=== PATIENT | male | born 2000 | race Caucasian/White ===

== ENCOUNTER 2022-03-29 20:56 | Emergency (ER) | payer OTHER, SELFPAY ==
[2022-03-29 21:17] VITALS: BP 124/70; BP 127/76; PULSE 115; PULSE 94; RESP 18; TEMP 38.2; O2SAT 99; BMI 25.1
--- NOTE | 2022-03-29 22:06 | CRLHL7_ITS ---
For Patients: As a result of the Cures Act, medical imaging exams and procedure reports are released immediately into your electronic medical record. You may view this report before your referring provider. If you have questions, please contact your health care provider. INDICATION: Cough. TECHNIQUE: Chest radiograph 2 views COMPARISON: None FINDINGS: Cardiovascular and mediastinum: The heart silhouette is normal in size and morphology. The mediastinum is normal in appearance. Lungs and pleural spaces: Both lungs are unremarkable in appearance. No sign of pleural effusion seen. No pneumothorax is identified. Bones and soft tissues: No significant findings. IMPRESSION: 1. No acute cardiopulmonary disease is seen. Dictated by Jean Mauro MD @ 03/29/2022 10:38:36 PM Dictated by: Jean Mauro MD @ 03/29/2022 22:38:43 (Electronically Signed)
--- NOTE | 2022-03-29 22:16 | ED.GENADULT ---
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 He tested negative for COVID 19 at home today. Pt has not vomited and has no diarrhea. No significant cough or disuria. No rashes or stiff neck. No sick contacts. Took tylenol at home with no effect. Related Data Home Medications Medication Instructions Recorded Confirmed No Known Home Medications 03/29/22 03/29/22 Allergies Allergy/AdvReac Type Severity Reaction Status Date / Time No Known Drug Allergies Allergy Verified 03/29/22 21:20 Review of Systems Status of ROS: Reports: 10 or more systems reviewed and unremarkable except as noted in History and below [facility] Medical History No significant past medical history Surgical History No significant past surgical history Social History Smoking Status: Never smoker Do you use any of these nicotine containing products: None How often do you have a drink containing alcohol: never How often do you have six or more drinks on one occasion: Never AUDIT-C Alcohol total score: 0 Non-prescribed substance use: marijuana (any form) Exam Narrative: Exam Narrative: EXAM GENERAL: Patient appears comfortable and well. EYES: No scleral icterus. ENT: Tympanic membranes and oropharynx normal. THYROID: no thyroid nodules or thyromegaly. LYMPH: No supraclavicular or cervical lymphadenopathy. SKIN: Visible skin seen during exam normal or with benign process only. EXT: No dependent lower extremity pedal edema. HEART: Regular rate and rhythm with no murmurs, rubs, or gallops. LUNGS: Clear to auscultation bilaterally with no crackles or wheezes. ABD: Soft, non tender, non distended. PSYCH: Good eye contact, speech is not pressured. Const: Vital Signs, click to edit/add: Vital Signs - 24 hr 03/29/22 21:17 03/29/22 21:17 Temperature 100.8 F H 100.8 F H Pulse Rate [Right Pulse Oximeter] 115 H 94 Respiratory Rate 18 18 Blood Pressure [Le ft Arm] 124/70 Blood Pressure [Ri ght Upper Arm] 127/76 Pulse Oximetry 99 99 Oxygen Delivery Me thod Room Air Room Air Course Course Hospital Course: Pt appears to have a mild viral illness. Will collect RSV, Influenza, COVID testing. Chest x ray and CBC Reevaluation(s) Reevaluation #1: CBC shows mild elevation but monocytes are not increased. Pt has no urinary symptoms. Chest Xray normal. No localizing symptoms Time: 22:56 Vital Signs Vital signs: Initial Vital Signs Temperature 100.8 F H 03/29/22 21:17 Temperature Source Temporal Artery Scan 03/29/22 21:17 Pulse Rate 115 H 03/29/22 21:17 Respiratory Rate 18 03/29/22 21:17 Respiratory Effort Spontaneous 03/29/22 21:17 Respiratory Depth Normal 03/29/22 21:17 Respiratory Pattern 03/29/22 21:17 Blood Pressure 124/70 03/29/22 21:17 Blood Pressure Mean 88 03/29/22 21:17 Blood Pressure Position Supine 03/29/22 21:17 Pulse Oximetry 99 03/29/22 21:17 Oxygen Delivery Method 03/29/22 21:17 Sepsis Recent Fever Within 48 Hours No 03/29/22 21:17 Sepsis New/Unexplained Change in Mental Status No 03/29/22 21:17 Sepsis Action Taken by Nursing No Action Required 03/29/22 21:17 Vital Signs Temperature 100.8 F H 03/29/22 21:17 Pulse Rate 115 H 03/29/22 21:17 Respiratory Rate 18 03/29/22 21:17 Blood Pressure 124/70 03/29/22 21:17 Pulse Oximetry 99 03/29/22 21:17 Oxygen Delivery Method 03/29/22 21:17 Temperature 100.8 F H 03/29/22 21:17 Pulse Rate 115 H 03/29/22 21:17 Respiratory Rate 18 03/29/22 21:17 Blood Pressure 124/70 03/29/22 21:17 Pulse Oximetry 99 03/29/22 21:17 Oxygen Delivery Method 03/29/22 21:17 Medical Decision Making MDM Narrative Medical decision making narrative: Pt presents with a constilation of symptoms most compadible with viral syndrome. Tested negative today for covid. Chest x ray normal. Unremarkable exam. Triple viral swab collected. Differential Diagnosis Differential Diagnosis: Viral syndrome, URI, Pneumonia, COVID19, Influenza Lab Data Labs: Lab Results 03/29/22 Range/Units 22:20 WBC 13.84 H (4.50-11.00) K/uL RBC 4.76 (4.30-5.90) m/uL Hgb 14.2 (13.5-17.5) gm/dL Hct 40.9 (37.0-53.0) % MCV 86 (80-100) fL MCH 30 (26-34) pg MCHC 35 (32-36) gm/dL RDW Coeff of Kaley 12.7 (11.5-15.5) % Plt Count 155 (140-440) K/uL Neut % (Auto) 89.3 H (42.0-72.0) % Lymph % (Auto) 3.9 L (20-44) % Smith % (Auto) 5.8 (0.0-11.0) % Eos % (Auto) 0.1 (0.0-7.0) % Baso % (Auto) 0.2 (0.0-3.0) % Neut # (Auto) 12.40 H (1.7-7.0) K/uL Lymph # (Auto) 0.50 L (0.90-2.90) K/uL Smith # (Auto) 0.80 (0.00-0.90) K/UL Eos # (Auto) 0.00 (0.00-0.50) K/uL Baso # (Auto) 0.00 (0.00-0.30) K/uL Abs Immat Gran (auto) 0.10 (0.00-0.30) K/uL Discharge Plan Discharge Clinical Impression: Fever Condition: Stable Instructions: Fever in Adults (ED) Additional Instructions: Tylenol Motrin Rest Fluids Measure tempurature Watch for any worsening symptoms Return if symptoms worsen or new symptoms develop Activity Level: No Restrictions Discharge Diet: Regular Prescriptions: No Action No Known Home Medications Stand Alone Forms: MyHealth Info Instructions
[2022-03-29 22:28] LABS: Basophils Percent Auto 0.2 % (0.0-3.0); Eosinophils Percent Auto 0.1 % (0.0-7.0); Hematocrit 40.9 % (37.0-53.0); Hemoglobin* 14.2 gm/dL (13.5-17.5); Lymphocytes Percent Auto 3.9 % (20-44); Mean Corpuscular HGB Conc 35 gm/dL (32-36); Mean Corpuscular Hemoglobin 30 pg (26-34); Mean Corpuscular Volume 86 fL (80-100); Monocytes Percent Auto 5.8 % (0.0-11.0); Neutrophils Percent Auto 89.3 % (42.0-72.0); Platelet Count* 155 K/uL (140-440); RDW Coefficient of Variation % 12.7 % (11.5-15.5); Red Blood Count 4.76 m/uL (4.30-5.90); White Blood Count* 13.84 K/uL (4.50-11.00)
[2022-03-29 22:31] LABS: Slide Review Reflex No
[2022-03-29 23:09] LABS: PCR FLU A Negative PCR FLU A (Negative); PCR FLU B Negative PCR FLU B (Negative); PCR RSV Negative PCR RSV (Negative)
[2022-03-29 23:10] VITALS: BP 120/70; PULSE 108; RESP 18; TEMP 37.8; O2SAT 99
[2022-03-29 23:21] VITALS: BP 127/76; PULSE 108; RESP 18; TEMP 37.8
[2022-03-30 00:19] LABS: SARS PCR* Negative SARS-CoV-2 (Negative)
== END 2022-03-29 23:10 | disposition home or self-care (01) ==
PROVIDERS: Emergency Provider Internal Medicine
DX: R50.9 Fever, unspecified (principal); R09.81 Nasal congestion
CPT/HCPCS: 36415; 71046; 85025; 87502; 87634; 87635; 99283; 99284